=== PATIENT | male | born 1965 | race Caucasian/White ===

== ENCOUNTER 2019-12-04 18:27 | Emergency (ER) | payer SELFPAY ==
[~2019-12-04] VITALS: Ht 177.8 cm; Wt 81.8 kg
[2019-12-04 18:48] LABS: BASOPHILS # (AUTO) 0.1 10^3/uL (0.0-0.1); BASOPHILS % (AUTO) 1 % (0-10); EOSINOPHILS # (AUTO) 0.1 10^3/uL (0.0-0.3); EOSINOPHILS % (AUTO) 1 % (0-10); HEMATOCRIT 47 % (40-54); HEMOGLOBIN 16.6 G/DL (13.3-17.7); LYMPHOCYTES # (AUTO) 4.5 X 10^3 (1.0-4.0); LYMPHOCYTES % (AUTO) 38 % (12-44); MEAN CORPUSCULAR HEMOGLOBIN 32 PG (25-34); MEAN CORPUSCULAR HGB CONC 36 G/DL (32-36); MEAN CORPUSCULAR VOLUME 91 FL (80-99); MEAN PLATELET VOLUME 9.6 FL (7.4-10.4); MONOCYTES # (AUTO) 0.7 X 10^3 (0.0-1.0); MONOCYTES % (AUTO) 6 % (0-12); NEUTROPHILS # (AUTO) 6.5 X 10^3 (1.8-7.8); NEUTROPHILS % (AUTO) 54 % (42-75); PLATELET COUNT 248 10^3/uL (130-400); RED CELL DISTRIBUTION WIDTH 13.3 % (10.0-14.5)
[2019-12-04 18:57] LABS: INR 0.9 (0.8-1.4); PROTHROMBIN TIME PATIENT 12.9 SEC (12.2-14.7)
--- NOTE | 2019-12-04 18:58 | ED Neurological Problem ---
General Chief Complaint: Neuro-Stroke Like Symptoms Stated Complaint: STROKE LIKE SYMPTOMS Source: patient History of Present Illness Date Seen by Provider: Dec 04, 2019 Time Seen by Provider: 18:28 Initial Comments 54-year-old male presenting with complaints of left arm numbness and weakness that has been present off and on for the last week. He felt that symptoms were worse today as he was dropping things and his noticed. She also felt that his face was drooping at the time. He felt like he was having difficulty moving his left leg. He said he had some chest pain while this was going on. He reports that this is been off and on at least all of this week since he got overheated. He does not follow with primary doctor regularly. He does not take any medicines every day. He is a smoker. He has a family history of cardiac disease. He did take 2 baby aspirin as well as one of his 's lisinopril around 5 PM when his symptoms were happening tonight. He reports that his symptoms are improved after arrival here in the ED. He denies any difficulty with swallowing or speaking. Allergies and Home Medications Allergies Coded Allergies: No Known Drug Allergies (Unverified , 12/04/19) Patient Home Medication List Home Medication List Reviewed: Yes Review of Systems Review of Systems Constitutional: No chills, No dizziness, No fever Eyes: Blurred Vision (earlier when his symptoms were worse); Denies Pain, Denies Photophobia Ears, Nose, Mouth, Throat: no symptoms reported Respiratory: short of breath; No stridor, No wheezing Cardiovascular: chest pain (pressure in his chest); No edema, No palpitations, No syncope Gastrointestinal: No abdominal pain, No diarrhea; nausea; No vomiting Genitourinary: No dysuria Musculoskeletal: No muscle pain; muscle weakness (felt to have weakness in his left arm and leg as well as numbness in his arm. He was told by his that his face was drooping on the left side.) Skin: No rash Psychiatric/Neurological: Denies Headache; Numbness (left arm intermittently for the last week worse today), Weakness (left arm and leg intermittently for at least the last week. He noticed that he was dropping things with his left hand and moving his leg was difficult on the left side. This has improved since onset ran 5 PM) Endocrine: Excessive Sweating (felt that he got overheated this last week and that's when he thinks his symptoms started) Hematologic/Lymphatic: Denies Blood Clots, Denies Easy Bleeding, Denies Easy Bruising All Other Systems Reviewed Negative Unless Noted: Yes (Negative excepted noted.) Past Ofedzkx-Fjksys-Mtrivq Hx Past Med/Social Hx: Reviewed Nursing Past Med/Soc Hx Patient Social History Alcohol Use: Denies Use Recreational Drug Use: Yes Drug of Choice: MARIJUANA Smoking Status: Current Everyday Smoker Type Used: Cigarettes 2nd Hand Smoke Exposure: No Recent Foreign Travel: No Contact w/Someone Who Travel: No Recent Hopitalizations: No Physical Abuse: No Sexual Abuse: No Mistreated: No Fear: No Seasonal Allergies Seasonal Allergies: No Past Medical History Surgeries: Yes (LEFT FINGER REPAIR) Orthopedic Respiratory: No Cardiac: No Hypertension Neurological: No Genitourinary: No Gastrointestinal: No Musculoskeletal: No Endocrine: No HEENT: No Cancer: No Psychosocial: No Blood Disorders: Yes (HEP C) Physical Exam Vital Signs Vital Signs - First Documented 12/04/19 18:29 Temp 36.3 Pulse 98 Resp 16 B/P (MAP) 157/113 (128) Pulse Ox 94 O2 Delivery Room Air Capillary Refill : Height, Weight, BMI Height: '" Weight: lbs. oz. kg; BMI Method: General Appearance: WD/WN, no apparent distress HEENT: PERRL/EOMI, normal ENT inspection, pharynx normal Neck: non-tender, full range of motion, supple, normal inspection Respiratory: chest non-tender, lungs clear, normal breath sounds, no respiratory distress, no accessory muscle use Cardiovascular: normal peripheral pulses, regular rate, rhythm, no murmur Gastrointestinal: normal bowel sounds, non tender, soft, no pulsatile mass Back: normal inspection, no CVA tenderness Extremities: normal range of motion, non-tender, normal inspection, no pedal edema, no calf tenderness, normal capillary refill Neurologic/Psychiatric: ribbon blocker II-XII nml as tested, alert, normal mood/affect, oriented x 3; No facial droop, No motor weakness; sensory deficit (decreased sensation to light touch of the left arm); No disoriented x 3 Crainal Nerves: normal hearing, normal speech, PERRL Motor/Sensory: no motor deficit, sensory deficit (decreased sensation to light touch in the left arm) Skin: normal color, warm/dry Stroke Onset of Symptoms Date of Onset of Symptoms: Dec 04, 2019 Time of Symptom Onset: 17:00 Onset of Symptoms: Yes NIH Stroke Scale Assessment Select: Initial Level of Consciousness: 0=Alert (0), Level of Consciousness- Questions: 0=Answers both month/age (0), LOC Commands: 0=Performs both tasks (0), Gaze: Normal (0), Visual Huizar: 0=No visual loss (0), Facial Movement (Facial Paresis): 0=Normal symmetrical mnt (0), Motor Function-Arms Right: 0=No drift (0), Motor Function-Arms Left: 0=No drift (0), Motor Function-Legs Right: 0=No drift (0), Motor Function-Legs Left: 0=No drift (0), Limb Ataxia: 0=Absent (0), Sensory: 1=Mild to Moderate loss (1), Best Language: 0=No aphasia (0), Dysarthria: 0=Normal (0), Extinction & Inattention: 0=No abnormality (0), Total: 1 Stroke Thrombolytic Exclusion Age 18 or Over: Yes Acute intenal hemorrhage: No History of CVA: No Uncontrolled Coagulation Defec: No Intracranial Hemorrhage: No Severe Hypertension: No GI or Bleed: No Subarachnoid Hemorrhage: No Intracranial Neoplasm/Aneurysm: No Oral Anticoagulants: No Surgery or Trauma: No Puncture of Non-Compressible V: No Recent CPR: No Diabetic Hemorrhagic Retinopat: No Organ Biopsy: No Recent Obstetric Delivery: No Glucose: No Significant Hepatic Dysfunctio: No NIH Stoke Scale >22: No Bacterial Endocarditis: No Pericarditis: No Improving Symptoms: Yes Platelets: No TPA Contraindication: Yes (intermittent symptoms for over a week) Progress/Results/Core Measures Results/Orders Lab Results Laboratory Tests Test 12/04/19 18:35 Range/Units White Blood Count 12.0 H 4.3-11.0 10^3/uL Red Blood Count 5.15 4.35-5.85 10^6/uL Hemoglobin 16.6 13.3-17.7 G/DL Hematocrit 47 40-54 % Mean Corpuscular Volume 91 80-99 FL Mean Corpuscular Hemoglobin 32 25-34 PG Mean Corpuscular Hemoglobin Concent 36 32-36 G/DL Red Cell Distribution Width 13.3 10.0-14.5 % Platelet Count 248 130-400 10^3/uL Mean Platelet Volume 9.6 7.4-10.4 FL Neutrophils (%) (Auto) 54 42-75 % Lymphocytes (%) (Auto) 38 12-44 % Monocytes (%) (Auto) 6 0-12 % Eosinophils (%) (Auto) 1 0-10 % Basophils (%) (Auto) 1 0-10 % Neutrophils # (Auto) 6.5 1.8-7.8 X 10^3 Lymphocytes # (Auto) 4.5 H 1.0-4.0 X 10^3 Monocytes # (Auto) 0.7 0.0-1.0 X 10^3 Eosinophils # (Auto) 0.1 0.0-0.3 10^3/uL Basophils # (Auto) 0.1 0.0-0.1 10^3/uL Prothrombin Time 12.9 12.2-14.7 SEC INR Comment 0.9 0.8-1.4 Activated Partial Thromboplast Time 26 24-35 SEC Sodium Level 140 135-145 MMOL/L Potassium Level 4.2 3.6-5.0 MMOL/L Chloride Level 99 98-107 MMOL/L Carbon Dioxide Level 25 21-32 MMOL/L Anion Gap 16 H 5-14 MMOL/L Blood Urea Nitrogen 25 H 7-18 MG/DL Creatinine 1.41 H 0.60-1.30 MG/DL Estimat Glomerular Filtration Rate 52 BUN/Creatinine Ratio 18 Glucose Level 137 H 70-105 MG/DL Calcium Level 9.8 8.5-10.1 MG/DL Corrected Calcium 9.5 8.5-10.1 MG/DL Total Bilirubin 0.3 0.1-1.0 MG/DL Aspartate Amino Transf (AST/SGOT) 30 5-34 U/L Alanine Aminotransferase (ALT/SGPT) 23 0-55 U/L Alkaline Phosphatase 85 40-136 U/L Troponin I < 0.30 <0.30 NG/ML Total Protein 7.6 6.4-8.2 GM/DL Albumin 4.4 3.2-4.5 GM/DL Serum Alcohol < 10 <10 MG/DL My Orders Orders - HERNANDEZ GRANT MD Cbc With Automated Diff (12/04/19 18:38) Protime With Inr (12/04/19 18:38) Partial Thromboplastin Time (12/04/19 18:38) Comprehensive Metabolic Panel (12/04/19 18:38) Troponin I Fs (12/04/19 18:38) Chest 1 View Ap/Pa Only (12/04/19 18:38) Ekg Tracing (12/04/19 18:38) Accucheck Stat ONCE (12/04/19 18:38) Ed Iv/Invasive Line Start (12/04/19 18:38) Vital Signs Stroke Patient Q15M (12/04/19 18:38) Ct Head Wo-R/O Stroke (12/04/19 18:38) O2 (12/04/19 18:38) Intake & Output 06,14,22 (12/04/19 18:38) Monitor-Rhythm Ecg Trace Only (12/04/19 18:38) Dysphagia Screening Tool (12/04/19 18:38) Alcohol (12/04/19 18:38) Vital Signs/I&O 12/04/19 12/04/19 18:29 20:26 Temp 36.3 Pulse 98 87 Resp 16 18 B/P (MAP) 157/113 (128) 131/88 Pulse Ox 94 97 O2 Delivery Room Air Room Air Progress Progress Note #1: Progress Note Stroke activation and obtained a CT scan of the head as well as blood work and chest x-ray with EKG. Progress Note #2: Time: 19:12 Progress Note Radiologist called with report that pt had subacute to acute ischemic changes in right frontal lobe. Pt updated and he was ok with going to [place] or [facility]. [address] Del Rio with neurology from [facility] stroke transfer center and she accepted the patient for transfer to [facility] for risk stratification and symptomatic treatment. He was not a TPA candidate since his symptoms have been staggered x 5-7 days and have rapidly improved this evening as well as already seen ischemic changes on his CT scan After making arrangements for transfer to [facility] the patient's stated she wanted to have him go to [facility] in [facility]. [address] Young with neurology about the patient. He was agreeable to the patient coming to [place]. [address] Armenta with the hospitalist service accepted the patient for transfer. We will send a Face sheet with information on the patient to [place] and they will sign a bed and called back with the bed assignment. His labs appear stable although he does have mild renal insufficiency with a creatinine 1.4. He has negative troponin and CBC and coags are normal. Progress Note #3: Time: 20:16 Progress Note After patient was accepted to [place] he spoke with his and they decided that he was leaving AGAINST MEDICAL ADVICE and she will drive him down rather than take an ambulance. He stated that he understood the risk of or worsening symptoms and was still against medical transport. He voiced concern about cost. Advised that there were programs to help with cost but he still refused medical transport and decided to leave AGAINST MEDICAL ADVICE. Stressed importance of follow-up with [place] or going to hospital with neurology for further evaluation and treatment. Initial ECG Impression Date: Dec 04, 2019 Initial ECG Impression Time: 19:17 Initial ECG Rate: 84 Initial ECG Rhythm: Normal Sinus Initial ECG Comparisson: No Previous ECG Available Comment Sinus rhythm with rate of [address] interval of [address] elevation. QT interval of 354 ms and QTc interval of 419 ms. No prior tracing available for comparison. Diagnostic Imaging Diagonstic Imaging: Xray Plain Films/CT/US/NM/MRI: chest Comments [facility] [place], [place] NAME: VANDANA ROWLEY [facility] REC#: [id number] PT STATUS: REG ER : 1965 PHYSICIAN: HERNANDEZ GRANT MD ADMIT DATE: 12/04/19/ER FS Draft Date of Exam:12/04/19 CHEST 1 VIEW AP/PA ONLY INDICATION: Left-sided arm numbness for 2 weeks Frontal views of the chest shows normal heart size and vascularity. The lungs are clear. There is no effusion or pneumothorax. There is no bony abnormality. IMPRESSION: No acute abnormality is seen. Dictated on workstation # [id number] Dict: 12/04/191901 Trans: 12/04/191907 [facility] [id number] Interpreted by: CLARY GIRON MD Electronically signed by: Diagonstic Imaging: CT Plain Films/CT/US/NM/MRI: head Comments [facility] [place], [place] NAME: VANDANA ROWLEY [facility] REC#: [id number] PT STATUS: REG ER : 1965 PHYSICIAN: HERNANDEZ GRANT MD ADMIT DATE: 12/04/19/ER FS Signed Date of Exam:12/04/19 CT HEAD WO-R/O STROKE PROCEDURE: CT head wo r/o stroke. TECHNIQUE: Multiple contiguous axial images were obtained through the brain without the use of intravenous contrast. Auto Exposure Controls were utilized during the CT exam to meet ALARA standards for radiation dose reduction. INDICATION: Intermittent left-sided arm numbness x2 weeks with most recent onset one hour ago. CORRELATION STUDY: None. FINDINGS: There is regional area of decreased attenuation in the most posterior aspect of the right frontal lobe and anterior parietal lobe at its vertex. The remainder of the brain parenchyma appears otherwise unremarkable. Ventricles and sulci appearing unremarkable. No midline shift or mass effect. No intracranial hemorrhage. Prominent intracranial vascular calcification is noted. No hyperdense MCA sign. Bony calvarium is intact. Paranasal sinuses and mastoid air cells are clear. IMPRESSION: 1. Regional area of decreased attenuation in the high right frontoparietal region. Particularly given symptoms, does raise concern for perhaps subacute area of infarct. Correlation with MRI would be recommended. Telephone call has been made to the [facility] at the time of dictation, 07:03 PM. Dictated by: Dictated on workstation # [id number] Dict: 12/04/191899 Trans: 12/04/191946 [id number] Interpreted by: KOSTAS CLEANING DO Electronically signed by: KOSTAS CLEANING DO 12/04/191946 Reviewed: Discussed w/Radiologist Departure Impression Primary Impression: Left against medical advice Additional Impression: Acute ischemic stroke Disposition: AGAINST MEDICAL ADVICE Condition: Against Medical Advice Transfer Transfer Reason: Patient preference Time Spoke to Accepting Phy: 19:38 Transfer Progress Notes [address] Young and Dr. Armenta and pt accepted for transfer to [facility]. They will call back with a room assignment after they get the Face Sheet and get him in the computer. Transfer Facility: [facility] Method of Transfer: EMS Departure-Patient Inst. Decision time for Depature: 20:16 Referrals: AURA WOOD DO (PCP/Family) Primary Care Physician Patient Instructions: Leaving Against Medical Advice, Stroke (DC) Add. Discharge Instructions: Follow up with Neurology and hospital as soon as possible. All discharge instructions reviewed with patient and/or family. Voiced understanding. HERNANDEZ GRANT MD Dec 04, 2019 18:58
--- NOTE | 2019-12-04 19:08 | Diagnostic Imaging Report ---
INDICATION: Left-sided arm numbness for 2 weeks Frontal views of the chest shows normal heart size and vascularity. The lungs are clear. There is no effusion or pneumothorax. There is no bony abnormality. IMPRESSION: No acute abnormality is seen. Dictated by: Dictated on workstation # [id number]
[2019-12-04 19:12] LABS: ALANINE AMINOTRANSFERASE 23 U/L (0-55); ALBUMIN 4.4 GM/DL (3.2-4.5); ALKALINE PHOSPHATASE 85 U/L (40-136); BILIRUBIN,TOTAL 0.3 MG/DL (0.1-1.0); BUN/CREATININE RATIO 18; CALCIUM 9.8 MG/DL (8.5-10.1); CARBON DIOXIDE 25 MMOL/L (21-32); CHLORIDE 99 MMOL/L (98-107); CREATININE SERUM 1.41 MG/DL (0.60-1.30); GFR ESTIMATED 52; GLUCOSE 137 MG/DL (70-105); POTASSIUM 4.2 MMOL/L (3.6-5.0); SODIUM 140 MMOL/L (135-145); TOTAL PROTEIN 7.6 GM/DL (6.4-8.2)
--- NOTE | 2019-12-04 19:37 | Diagnostic Imaging Report ---
PROCEDURE: CT head wo r/o stroke. TECHNIQUE: Multiple contiguous axial images were obtained through the brain without the use of intravenous contrast. Auto Exposure Controls were utilized during the CT exam to meet ALARA standards for radiation dose reduction. INDICATION: Intermittent left-sided arm numbness x2 weeks with most recent onset one hour ago. CORRELATION STUDY: None. FINDINGS: There is regional area of decreased attenuation in the most posterior aspect of the right frontal lobe and anterior parietal lobe at its vertex. The remainder of the brain parenchyma appears otherwise unremarkable. Ventricles and sulci appearing unremarkable. No midline shift or mass effect. No intracranial hemorrhage. Prominent intracranial vascular calcification is noted. No hyperdense MCA sign. Bony calvarium is intact. Paranasal sinuses and mastoid air cells are clear. IMPRESSION: 1. Regional area of decreased attenuation in the high right frontoparietal region. Particularly given symptoms, does raise concern for perhaps subacute area of infarct. Correlation with MRI would be recommended. Telephone call has been made to the [place] [facility] at the time of dictation, 07:03 PM. Dictated by: Dictated on workstation # [id number]
--- NOTE | 2019-12-04 20:15 | NUR ---
PT REQUESTED TO SPEAK WITH HIS PRIOR TO BEING TRANSFERRED VIA EMS TO [facility]. PT NOW STATES THAT HE WANTS HIS TO TRANSPORT HIM POV TO [facility]. THIS RN AND THE PROVIDER EXPLAINED THE RISKS INVOLVED IN NOT BEING TRANSPORTED VIA EMS AND THE PT STATES HE UNDERSTANDS THE RISKS.
[2019-12-04 20:26] VITALS: BP 131/88
--- OUTSIDE RECORDS SUMMARY | 2019-12-04 22:36 | XMS REPORT | Continuity of Care Document ---
Demographics Preferred Language Unknown Marital Status Unknown Mandaeism Affiliation Unknown Race Unknown Ethnic Group Unknown Author Organization Unknown Address Unknown Phone Unavailable Allergies There is no data. Medications There is no data. Problems There is no data. Procedures There is no data. Results Test Result Range Complete blood count (CBC) with automate d white blood cell (WBC) differential - 12/04/19 18:35 Blood leukocytes automated count (number/volume) 12.0 10*3/uL 4.3-11.0 Blood erythrocytes automated count (number/volume) 5.15 10*6/uL 4.35-5.85 Venous blood hemoglobin measurement (mass/volume) 16.6 g/dL 13.3-17.7 Blood hematocrit (volume fraction) 47 % 40-54 Automated erythrocyte mean corpuscular volume 91 [ foz_us] 80-99 Automated erythrocyte mean corpuscular h emoglobin (mass per erythrocyte) 32 pg 25-34 Automated erythrocyte mean corpuscular h emoglobin concentration measurement (mass/volume) 36 g/dL 32-36 Automated erythrocyte distribution width ratio 13. 3 % 10.0- 14.5 Automated blood platelet count (count/volume) 248 10*3/uL 130-400 Automated blood platelet mean volume measurement 9.6 [foz_us] 7.4-10.4 Automated blood neutrophils/100 leukocytes 54 % 42-75 Automated blood lymphocytes/100 leukocytes 38 % 12-44 Blood monocytes/100 leukocytes 6 % 0-12 Automated blood eosinophils/100 leukocytes 1 % 0-10 Automated blood basophils/100 leukocytes 1 % 0-10 Blood neutrophils automated count (number/volume) 6.5 10*3 1.8-7.8 Blood lymphocytes automated count (number/volume) 4.5 10*3 1.0-4.0 Blood monocytes automated count (number/volume) 0. 7 10*3 0.0-1.0 Automated eosinophil count 0.1 10*3/uL 0 .0-0.3 Automated blood basophil count (count/volume) 0.1 10*3/uL 0.0-0.1 PT panel in platelet poor plasma by coag ulation assay - 12/04/19 18:35 Prothrombin time (PT) in platelet poor plasma by coagu lation assay 12.9 s 12.2-14.7 INR in platelet poor plasma or blood by coagulation as say 0.9 0.8-1.4 Activated partial thromboplastin time (a PTT) in platelet poor plasma bycoagulation assay - 12/04/19 18:35 Activated partial thromboplastin time (a PTT) in platelet poor plasma bycoagulation assay 26 s 24-35 Serum or plasma ethanol measurement (mas s/volume) - 12/04/19 18:35 Serum or plasma ethanol measurement (mass/volume) < mg/dL <10 Comprehensive metabolic panel - 12/04/19 18:35 Serum or plasma sodium measurement (moles/volume) 140 mmol/L 135-145 Serum or plasma potassium measurement (moles/volume) 4.2 mmol/L 3.6-5.0 Serum or plasma chloride measurement (moles/volume) 99 mmol/L 98-107 Carbon dioxide 25 mmol/L 21-32 Serum or plasma anion gap determination (moles/volume) 16 mmol/L 5-14 Serum or plasma urea nitrogen measurement (mass/volume ) 25 mg/dL 7-18 Serum or plasma creatinine measurement (mass/volume) 1.41 mg/dL 0.60-1.30 Serum or plasma urea nitrogen/creatinine mass ratio 18 NRG Serum or plasma creatinine measurement w ith calculation of estimated glomerular filtration rate 52 NRG Serum or plasma glucose measurement (mass/volume) 137 mg/dL 70-105 Serum or plasma calcium measurement (mass/volume) 9.8 mg/dL 8.5-10.1 Serum or plasma total bilirubin measurement (mass/volu me) 0.3 mg/dL 0.1-1.0 Serum or plasma alkaline phosphatase elisha surement (enzymatic activity/volume) 85 U/L 40-136 Serum or plasma aspartate aminotransfera se measurement (enzymatic activity/volume) 30 U/L 5-34 Serum or plasma alanine aminotransferase measurement (enzymatic activity/volume) 23 U/L 0-55 Serum or plasma protein measurement (mass/volume) 7.6 g/dL 6.4-8.2 Serum or plasma albumin measurement (mass/volume) 4.4 g/dL 3.2-4.5 CALCIUM CORRECTED 9.5 mg/dL 8.5-10.1 TROPONIN I FS - 12/04/19 18:35 TROPONIN I FS < 0.30 <0.30 Encounters ACCT No. Visit Date/Time Discharge Status Pt. Type Provider Facility Loc./Unit Complaint [id number] 12/04/2019 18:49:00 Document Registration
== END 2019-12-04 20:22 | disposition left against medical advice (07) ==
LOC: ER FS 18:29
DX: I63.9 Cerebral infarction, unspecified (principal); I10 Essential (primary) hypertension; F17.210 Nicotine dependence, cigarettes, uncomplicated
CPT/HCPCS: 36415; 70450; 71045; 80053; 80320; 84484; 85025; 85610; 85730; 93041

== ENCOUNTER 2021-11-09 12:20 | Emergency (ER) | payer BC ==
[~2021-11-09] VITALS: Ht 177 cm; Wt 85.0 kg
[2021-11-09 12:34] LABS: BILIRUBIN,URINE NEGATIVE (NEGATIVE); CLARITY,URINE CLEAR; COLOR,URINE YELLOW; GLUCOSE, URINE (UA) NEGATIVE (NEGATIVE); KETONES,URINE NEGATIVE (NEGATIVE); LEUKOCYTE ESTERASE ,URINE NEGATIVE (NEGATIVE); NITRITE,URINE NEGATIVE (NEGATIVE); PROTEIN,URINE 1+ (NEGATIVE)
[2021-11-09] MEDS ORDERED: fentaNYL INJ 100 MCG/2 ML AMP IVP ONE (12:45)
[2021-11-09 12:47] LABS: BACTERIA,URINE NEGATIVE /HPF; RBC,URINE 50-100 /HPF
[2021-11-09] MEDS ORDERED: ONDANSETRON 4 MG/2 ML (SDV) Z0FRAN IVP ONE (13:00)
[2021-11-09 13:02] LABS: BASOPHILS # (AUTO) 0.1 10^3/uL (0.0-0.1); BASOPHILS % (AUTO) 1 % (0-10); EOSINOPHILS # (AUTO) 0.2 10^3/uL (0.0-0.3); EOSINOPHILS % (AUTO) 2 % (0-10); HEMATOCRIT 47 % (40-54); HEMOGLOBIN 16.2 g/dL (13.3-17.7); LYMPHOCYTES % (AUTO) 38 % (12-44); MEAN CORPUSCULAR HEMOGLOBIN 32 pg (25-34); MEAN CORPUSCULAR HGB CONC 34 g/dL (32-36); MEAN CORPUSCULAR VOLUME 92 fL (80-99); MEAN PLATELET VOLUME 9.8 fL (9.0-12.2); MONOCYTES # (AUTO) 0.7 10^3/uL (0.0-1.0); MONOCYTES % (AUTO) 7 % (0-12); NEUTROPHILS # (AUTO) 5.5 10^3/uL (1.8-7.8); NEUTROPHILS % (AUTO) 52 % (42-75); PLATELET COUNT 250 10^3/uL (130-400); WHITE BLOOD COUNT 10.6 10^3/uL (4.3-11.0)
[2021-11-09 13:07] LABS: INR 1.1 (0.8-1.4); PROTHROMBIN TIME PATIENT 14.4 SEC (12.2-14.7)
--- NOTE | 2021-11-09 13:13 | Diagnostic Imaging Report ---
INDICATION: Prior history of stroke, sudden onset severe headache. TECHNIQUE: Multiple contiguous axial images were obtained through the brain without the use of intravenous contrast. Auto Exposure Controls were utilized during the CT exam to meet ALARA standards for radiation dose reduction. Comparison made with prior study from 12/04/2019. FINDINGS: There are no extra-axial fluid collections. No intracranial hemorrhage. No intracranial mass or mass effect. No midline shift. The ventricles are normal in size and position. There is an old infarct in the right parietal region, which appears similar to the previous study. There is no definite new abnormality. Calvarial windows are normal. IMPRESSION: Old right parietal infarct. No acute hemorrhage or mass effect or acute appearing finding. Dictated by: Dictated on workstation # [id number]
--- NOTE | 2021-11-09 13:18 | ED General ---
General Chief Complaint: - Reproductive Stated Complaint: HEADACHE; URINARY PAIN Nursing Triage Note: Patient has presented to ER with cc of urinary pain, frequency, right sided flank pain that started about 1130 this morning. He reports that it feels like past kidney stone pain. He adds that he since his flank pain started he has developed a headache. He did take tramodol for his pain with little relief. Source of Information: Patient Exam Limitations: No Limitations History of Present Illness Date Seen by Provider: November 09, 2021 Time Seen by Provider: 12:24 Initial Comments This 56-year-old gentleman presents to the emergency room with 2 complaints. First he has a right flank pain radiating down into the right groin reminiscent of previous ureteral stones. The pain started suddenly this morning. He had some brief associated nausea. He also has pain with urination and feeling of urinary urgency. His second complaint is severe headache that came on suddenly as he was walking into the ER. He is severely hypertensive on initial blood pressure measurement. Initial blood pressure was 230/121. He exhibits no neurologic deficits. Allergies and Home Medications Allergies Coded Allergies: No Known Drug Allergies (Unverified , 12/04/19) Patient Home Medication List Home Medication List Reviewed: Yes Hydrocodone/Acetaminophen (Hydrocodone-Acetamin 5-325 mg) 5 Mg-325 Mg Tablet, 1 TAB PO Q4H PRN for PAIN-MODERATE (5-7) Prescribed by: SABRINA ALCARAZ on 11/09/21 1343 Ondansetron (Ondansetron Odt) 4 Mg Tab.rapdis, 4 MG SL Q4H PRN for NAUSEA/VOMITING Prescribed by: SABRINA ALCARAZ on 11/09/21 1342 Tamsulosin HCl (Flomax) 0.4 Mg Cap, 0.4 MG PO DAILY Prescribed by: SABRINA ALCARAZ on 11/09/21 1342 Review of Systems Review of Systems Constitutional: no symptoms reported EENTM: no symptoms reported Respiratory: no symptoms reported Cardiovascular: no symptoms reported Gastrointestinal: see HPI Genitourinary: see HPI Musculoskeletal: no symptoms reported Skin: no symptoms reported Psychiatric/Neurological: See HPI Hematologic/Lymphatic: No Symptoms Reported Immunological/Allergic: no symptoms reported Past Xyaknyy-Rsxkiq-Yrbwie Hx Patient Social History Tobacco Use?: Yes Tobacco type used: Cigarettes Smoking Status: Current Everyday Smoker Use of E-Cig and/or Vaping dev: No Substance use?: Yes Substance type: Marijuana Substance frequency: Daily Alcohol Use?: Yes Alcohol Frequency: Once in a while Seasonal Allergies Seasonal Allergies: No Past Medical History Surgeries: Yes (LEFT FINGER REPAIR) Orthopedic Respiratory: No Cardiac: Yes Hypertension Neurological: No Genitourinary: Yes Kidney Stones Gastrointestinal: No Musculoskeletal: No Endocrine: No HEENT: No Cancer: No Psychosocial: No Blood Disorders: Yes (HEP C) Physical Exam Vital Signs Vital Signs - First Documented 11/09/21 12:37 Temp 35.0 Pulse 65 Resp 18 B/P (MAP) 230/121 (157) Pulse Ox 95 O2 Delivery Room Air Capillary Refill : Height, Weight, BMI Height: '" Weight: lbs. oz. kg; 27.00 BMI Method: General Appearance: WD/WN, Mild Distress HEENT: PERRL/EOMI, Normal ENT Inspection, Pharynx Normal Neck: Normal Inspection Respiratory: Lungs Clear, Normal Breath Sounds, No Accessory Muscle Use Cardiovascular: Regular Rate, Rhythm, No Edema, No Murmur Gastrointestinal: Normal Bowel Sounds, Soft, Tenderness (Right flank down through right lower quadrant) Extremity: Normal Inspection, No Pedal Edema Neurologic/Psychiatric: Alert, Oriented x3, No Motor/Sensory Deficits, Normal Mood/Affect, dobie man II-XII Norm as Tested Skin: Normal Color, Warm/Dry Progress/Results/Core Measures Suspected Sepsis SIRS Temperature: Pulse: 65 Respiratory Rate: 18 Laboratory Tests 11/09/21 12:29: White Blood Count 10.6 Blood Pressure 230 /121 Mean: 157 Laboratory Tests 11/09/21 12:29: Creatinine 1.03, INR Comment 1.1, Platelet Count 250, Total Bilirubin 0.4 Results/Orders Lab Results Laboratory Tests Test 11/09/21 12:25 11/09/21 12:29 Range/Units Urine Color YELLOW Urine Clarity CLEAR Urine pH 7.0 5-9 Urine Specific [place] 1.020 1.016-1.022 Urine Protein 1+ H NEGATIVE Urine Glucose (UA) NEGATIVE NEGATIVE Urine Ketones NEGATIVE NEGATIVE Urine Nitrite NEGATIVE NEGATIVE Urine Bilirubin NEGATIVE NEGATIVE Urine Urobilinogen 0.2 < = 1.0 MG/DL Urine Leukocyte Esterase NEGATIVE NEGATIVE Urine RBC (Auto) 3+ H NEGATIVE Urine RBC 50-100 H /HPF Urine WBC NONE /HPF Urine Squamous Epithelial Cells NONE /HPF Urine Crystals NONE /LPF Urine Bacteria NEGATIVE /HPF Urine Casts NONE /LPF Urine Mucus NEGATIVE /LPF Urine Culture Indicated NO White Blood Count 10.6 4.3-11.0 10^3/uL Red Blood Count 5.10 4.30-5.52 10^6/uL Hemoglobin 16.2 13.3-17.7 g/dL Hematocrit 47 40-54 % Mean Corpuscular Volume 92 80-99 fL Mean Corpuscular Hemoglobin 32 25-34 pg Mean Corpuscular Hemoglobin Concent 34 32-36 g/dL Red Cell Distribution Width 13.6 10.0-14.5 % Platelet Count 250 130-400 10^3/uL Mean Platelet Volume 9.8 9.0-12.2 fL Immature Granulocyte % (Auto) 0 % Neutrophils (%) (Auto) 52 42-75 % Lymphocytes (%) (Auto) 38 12-44 % Monocytes (%) (Auto) 7 0-12 % Eosinophils (%) (Auto) 2 0-10 % Basophils (%) (Auto) 1 0-10 % Neutrophils # (Auto) 5.5 1.8-7.8 10^3/uL Lymphocytes # (Auto) 4.0 1.0-4.0 10^3/uL Monocytes # (Auto) 0.7 0.0-1.0 10^3/uL Eosinophils # (Auto) 0.2 0.0-0.3 10^3/uL Basophils # (Auto) 0.1 0.0-0.1 10^3/uL Immature Granulocyte # (Auto) 0.0 0.0-0.1 10^3/uL Prothrombin Time 14.4 12.2-14.7 SEC INR Comment 1.1 0.8-1.4 Activated Partial Thromboplast Time 27 24-35 SEC Sodium Level 137 135-145 MMOL/L Potassium Level 4.0 3.6-5.0 MMOL/L Chloride Level 100 98-107 MMOL/L Carbon Dioxide Level 22 21-32 MMOL/L Anion Gap 15 H 5-14 MMOL/L Blood Urea Nitrogen 19 H 7-18 MG/DL Creatinine 1.03 0.60-1.30 MG/DL Estimat Glomerular Filtration Rate 85 BUN/Creatinine Ratio 18 Glucose Level 112 H 70-105 MG/DL Calcium Level 9.3 8.5-10.1 MG/DL Corrected Calcium 9.0 8.5-10.1 MG/DL Total Bilirubin 0.4 0.1-1.0 MG/DL Aspartate Amino Transf (AST/SGOT) 27 5-34 U/L Alanine Aminotransferase (ALT/SGPT) 18 0-55 U/L Alkaline Phosphatase 79 40-136 U/L Total Protein 7.6 6.4-8.2 GM/DL Albumin 4.4 3.2-4.5 GM/DL My Orders Orders - SABRINA CARDONA MD Ua Culture If Indicated (11/09/21 12:24) Fentanyl Inj (Sublimaze Injection) (11/09/21 12:45) Ct Abdomen/Pelvis Wo (11/09/21 12:45) Ct Head Wo-R/O Stroke (11/09/21 12:45) Cbc With Automated Diff (11/09/21 12:54) Comprehensive Metabolic Panel (11/09/21 12:54) Protime With Inr (11/09/21 12:54) Partial Thromboplastin Time (11/09/21 12:54) Ed Iv/Invasive Line Start (11/09/21 12:54) Ondansetron Injection (Zofran Injectio (11/09/21 13:00) Ketorolac Injection (Toradol Injection) (11/09/21 13:30) Medications Given in ED Current Medications Medications Dose Ordered Sig/Sanket Route Start Time Stop Time Status Last Admin Dose Admin Fentanyl Citrate 75 mcg ONCE ONCE IVP 11/09/21 12:45 11/09/21 12:46 DC 11/09/21 12:52 75 MCG Ketorolac Tromethamine 15 mg ONCE ONCE IVP 11/09/21 13:30 11/09/21 13:31 DC 11/09/21 13:39 15 MG Vital Signs/I&O 11/09/21 11/09/21 12:37 13:41 Temp 35.0 Pulse 65 66 Resp 18 16 B/P (MAP) 230/121 (157) 164/100 Pulse Ox 95 98 O2 Delivery Room Air Room Air Capillary Refill : Blood Pressure Mean: 157 Progress Note #1: Time: 13:17 Progress Note Patient received fentanyl 75 mcg IV for pain control. Pain improved significantly and blood pressure dropped to 174/97. CT of the head and CT abdomen and pelvis for stone search were obtained. Interpretation is pending. Progress Note #2: Progress Note CT of the head demonstrated old stroke but no acute abnormalities. CT abdomen and pelvis showed a distal ureteral stone at the right UVJ. Patient was further treated with Toradol. Prescriptions were provided along with a strainer. Patient has an appointment with his primary care provider at 1400. He will discuss management of his blood pressure at that time. He did have a notable improvement in his blood pressure while in the ER. I have suggested that he increase his dosing from lisinopril 20 mg a day to lisinopril 30 mg a day. Headache and abdominal pain were significantly improved while in the ER. He did not require antiemetics. Diagnostic Imaging Diagonstic Imaging: CT Plain Films/CT/US/NM/MRI: head Comments CT head viewed by me and report reviewed. See report below: NAME: VANDANA ROWLEY [facility] REC#: [id number] PT STATUS: REG ER : 1965 PHYSICIAN: SABRINA CARDONA MD ADMIT DATE: 11/09/21/ER FS Draft Date of Exam:11/09/21 CT HEAD WO-R/O STROKE INDICATION: Prior history of stroke, sudden onset severe headache. TECHNIQUE: Multiple contiguous axial images were obtained through the brain without the use of intravenous contrast. Auto Exposure Controls were utilized during the CT exam to meet ALARA standards for radiation dose reduction. Comparison made with prior study from 12/04/2019. FINDINGS: There are no extra-axial fluid collections. No intracranial hemorrhage. No intracranial mass or mass effect. No midline shift. The ventricles are normal in size and position. There is an old infarct in the right parietal region, which appears similar to the previous study. There is no definite new abnormality. Calvarial windows are normal. IMPRESSION: Old right parietal infarct. No acute hemorrhage or mass effect or acute appearing finding. Dictated on workstation # [id number] Dict: 11/09/21 1306 Trans: 11/09/21 1312 [id number] Interpreted by: CORNELIA ERVIN MD Diagonstic Imaging: CT Plain Films/CT/US/NM/MRI: abdomen, pelvis Comments CT abdomen pelvis viewed by me and report reviewed. See report below: Departure Impression Primary Impression: Right ureteral stone Additional Impressions: Episode of hypertension Severe headache Disposition: 01 HOME, SELF-CARE Condition: Improved Departure-Patient Inst. Decision time for Depature: 13:39 Referrals: AURA WOOD DO (PCP/Family) Primary Care Physician Patient Instructions: High Blood Pressure in Adults, Kidney Stone Diet, Kidney Stone, Adult ED Add. Discharge Instructions: Drink plenty of clear liquids to help flush out the kidney stone. You may take ibuprofen up to 600 mg every 6 hours as needed for pain. Add hydrocodone for pain not controlled by ibuprofen. Use the Zofran (ondansetron) as prescribed for nausea and vomiting. Keep your appointment with your primary care provider today. Discuss potentially increasing your lisinopril dosing for better blood pressure control. Strain your urine and bring any stones collected to a follow-up appointment with your primary care provider. Call with questions or concerns. All discharge instructions reviewed with patient and/or family. Voiced understanding. Scripts Cephalexin (Cephalexin) 500 Mg Tablet 500 MG PO TID, #20 TAB Prov: SABRINA CARDONA MD 11/09/21 Ondansetron (Ondansetron Odt) 4 Mg Tab.rapdis 4 MG SL Q4H PRN for NAUSEA/VOMITING, #10 TAB Prov: SABRINA CARDONA MD 11/09/21 Hydrocodone/Acetaminophen (Hydrocodone-Acetamin 5-325 mg) 5 Mg-325 Mg Tablet 1 TAB PO Q4H PRN for PAIN-MODERATE (5-7), #10 TAB Prov: SABRINA CARDONA MD 11/09/21 Tamsulosin HCl (Flomax) 0.4 Mg Cap 0.4 MG PO DAILY, #10 CAP Prov: SABRINA CARDONA MD 11/09/21 Copy Copies To 1: AURA WOOD JOSHUA T MD November 09, 2021 13:18
[2021-11-09 13:19] LABS: ALBUMIN 4.4 GM/DL (3.2-4.5); BILIRUBIN,TOTAL 0.4 MG/DL (0.1-1.0); CALCIUM 9.3 MG/DL (8.5-10.1); CREATININE SERUM 1.03 MG/DL (0.60-1.30); TOTAL PROTEIN 7.6 GM/DL (6.4-8.2)
--- NOTE | 2021-11-09 13:21 | Diagnostic Imaging Report ---
PROCEDURE: CT abdomen and pelvis without contrast. TECHNIQUE: Multiple contiguous axial images were obtained through the abdomen and pelvis without the use of intravenous contrast. Auto Exposure Controls were utilized during the CT exam to meet ALARA standards for radiation dose reduction. INDICATION: 56-year-old male, right flank pain. Headache. CORRELATION STUDY: None. FINDINGS: LOWER THORAX: Clear with minimal basilar atelectasis. Heart size within normal limits with coronary artery calcification. LIVER: Unremarkable on unenhanced imaging. GALLBLADDER: Present and unremarkable. No bile duct dilatation. SPLEEN: Unremarkable. PANCREAS: Unremarkable. ADRENAL GLANDS: 13 mm low-density nodule left adrenal gland, suspect for adenoma but incompletely characterized. KIDNEYS: Presence of multiple non-obstructing bilateral renal stones, left greater than right. 2 mm stone at the right UVJ currently results in mild right-sided obstruction. ABDOMINAL AORTA: Diffuse wall calcification and ectasia. Maximum dimension up to 2.8 cm. GASTROINTESTINAL TRACT: No obstruction or inflammation. Normal appendix. URINARY BLADDER: Unremarkable. REPRODUCTIVE: Prostate gland appearing unremarkable. OSSEOUS STRUCTURES: Moderately advanced multilevel degenerative change. Most severe disc space narrowing and vacuum disc phenomenon at the L4-L5 level and to a lesser degree the L1-L2 level. Mild S-type curvature of the thoracolumbar spine. OTHER: None. IMPRESSION: 1. 2 mm stone right UVJ results in currently mild obstruction. 2. Multiple additional small nonobstructing renal stones, left greater than right. 3. Prominent calcification of the abdominal aorta with a maximum dimension of just under 3 cm. Dictated by: Dictated on workstation # [id number]
[2021-11-09] MEDS ORDERED: KETOROLAC 30 MG/ML VIAL IVP ONE (13:30)
[2021-11-09 13:41] VITALS: BP 164/100
[2021-11-09] MEDS ORDERED: ACHD5005 PO ×2 (13:42→15:24)
[2021-11-09] MEDS ORDERED: TMSL.4C PO ×2 (13:42→15:24)
[2021-11-09] MEDS ORDERED: ONDA4TAB11 SL ×2 (13:42→15:24)
[2021-11-09] MEDS ORDERED: CEPH500T PO ×2 (13:52→15:24)
== END 2021-11-09 13:45 | disposition home or self-care (01) ==
LOC: EDUNIT# 12:20 → ER FS 12:22
DX: N20.1 Calculus of ureter (principal); I10 Essential (primary) hypertension; F17.210 Nicotine dependence, cigarettes, uncomplicated
CPT/HCPCS: 36415; 70450; 74176; 80053; 81000; 85025; 85610; 85730; 96374; 96375

== ENCOUNTER → 2022-01-12 | Outpatient (CLI) | payer BC ==
[~2022-01-12] MED LIST: ACHD5005 PO; CEPH500T PO; ONDA4TAB11 SL; TMSL.4C PO
--- NOTE | 2022-01-12 09:38 | Diagnostic Imaging Report ---
PROCEDURE: US carotid duplex, bilateral. TECHNIQUE: Multiple real-time grayscale images were obtained over the carotid arteries in various projections, bilaterally. Additional spectral analysis and color Doppler duplex images were also obtained. INDICATION: Transient ischemic attack. Patient has had a prior right-sided endarterectomy. No definite identifiable flow in the right common or internal carotid artery is identified. There is flow in the right external carotid artery. There is flow in the left common carotid artery with velocities of 80 cm/s. No identifiable flow in the left internal carotid artery is identified. Both vertebral arteries show antegrade flow. IMPRESSION: Severe carotid disease with apparent occlusions of the internal carotid arteries. A trickle of flow cannot be entirely excluded therefore CT angiography may be useful for further evaluation. Parameters based on the consensus panel Espinal-Scale and Doppler ultrasound criteria published April 2003, Radiology, Volume 229. DOPPLER (peak systolic velocity M/S Right Left CCA OCCLUDED .80 ICA Proximal OCCLUDED OCCLUDED ICA Mid OCCLUDED OCCLUDED ICA Distal OCCLUDED OCCLUDED RATIO NA NA ECA .46 1.67 VERT .71 .84 Dictated by: Dictated on workstation # [id number]
== END ==
LOC: RAD FS 07:36
PROVIDERS: ATTEND Emergency Medicine
DX: I65.23 Occlusion and stenosis of bilateral carotid arteries (principal)
CPT/HCPCS: 93880

== ENCOUNTER → 2022-02-01 | Outpatient (CLI) | payer BC ==
--- NOTE | 2022-02-01 14:54 | Diagnostic Imaging Report ---
Indication: Mini stroke, carotid stenosis. TECHNIQUE: After intravenous administration of contrast, thin section axial CT angiography of the neck was performed. Source data was reformatted into 3D MIP reconstruction projections. Auto Exposure Controls were utilized during the CT exam to meet ALARA standards for radiation dose reduction. There is no prior CTA for comparison. The aortic arch and great vessel origins are patent, the combined trunk of the left common carotid and innominate artery, compatible with bovine arch. There is minor plaquing in the left subclavian artery. Both vertebral arteries are patent and appear without stenosis. There is minor plaquing in the distal left vertebral artery without stenosis. The right common carotid artery and internal carotid artery are occluded. There is some collateral filling of right external carotid branches. There appears to be collateral refilling of the right anterior middle cerebral arteries. The left common carotid artery is patent. There is patency of the left external carotid. The left internal carotid is occluded at its origin. There is collateral refilling of the left carotid terminus with patency of the left anterior and middle cerebral arteries. There is a well-developed posterior communicating artery on the left side. The dural venous sinuses are patent. IMPRESSION: On the right side, there is occlusion of the common carotid artery and internal carotid with some collateral refilling of the external carotid. On the left side, there is occlusion of the left internal carotid at its origin, the left common carotid artery and external carotid are patent. Collateral vessels refill the carotid terminus on both sides. Both vertebral arteries are patent and without significant stenosis. There is a well-developed posterior communicating artery on the left side. Dictated by: Dictated on workstation # [id number]
== END ==
LOC: RAD FS 09:40
DX: I63.233 Cerebral infarction due to unspecified occlusion or stenosis of bilateral carotid arteries (principal)
CPT/HCPCS: 70498; Q9967

== ENCOUNTER → 2022-12-14 | Outpatient (CLI) | payer BC ==
--- NOTE | 2022-12-14 16:51 | Diagnostic Imaging Report ---
EXAMINATION: Abdomen 1 view HISTORY: LOWER ABD PAIN, HX URINARY CALCULI COMPARISON: None available. FINDINGS: There is a moderate amount of gas and stool throughout the colon. Nonobstructive bowel gas pattern. There are few tiny calcifications within the pelvis which are nonspecific and could be seen with phleboliths or ureteral calculi. The lung bases are clear. The osseous structures are intact. IMPRESSION: 1. Moderate stool burden without other acute abnormality in the abdomen. 2. A few tiny calcifications within the right pelvis which could represent previously seen phleboliths or ureteral calculi. CT would be more sensitive for evaluation of ureteral calculus. Dictated by: Dictated on workstation # [id number]
== END ==
LOC: RAD FS 15:36
PROVIDERS: ATTEND Nurse Practitioner Family
DX: R93.89 Abnormal findings on diagnostic imaging of other specified body structures (principal); R10.30 Lower abdominal pain, unspecified; R33.9 Retention of urine, unspecified; R30.0 Dysuria; Z87.442 Personal history of urinary calculi
CPT/HCPCS: 74018

== ENCOUNTER → 2023-01-16 | Outpatient (CLI) | payer BC | LOC: CANPRECLI → RAD FS 16:01 | PROVIDERS: ATTEND Nurse Practitioner Family | DX: Z53.9 Procedure and treatment not carried out, unspecified reason (principal) ==

== ENCOUNTER → 2023-01-16 | Outpatient (CLI) | payer BC ==
--- NOTE | 2023-01-16 17:09 | Diagnostic Imaging Report ---
INDICATION: Abdominal pain. TECHNIQUE: Multiple contiguous axial images were obtained through the abdomen and pelvis without the use of intravenous contrast. Auto Exposure Controls were utilized during the CT exam to meet ALARA standards for radiation dose reduction. COMPARISON: Comparison made to prior CT of 11/09/2021. FINDINGS: The visualized portions of the lung bases show no acute finding. There is no pleural fluid or free intraperitoneal air. The liver and gallbladder appear unremarkable. The spleen and pancreas appear normal. The right adrenal appears normal. The left adrenal shows a small nodule measuring about 1.2 cm, this appears stable compared to the previous study. The kidneys bilaterally show multiple small intrarenal calculi but no hydronephrosis. The hydronephrotic change of the right kidney seen on the prior study has resolved. There is no retroperitoneal mass or adenopathy. Abdominal aorta is mildly ectatic measuring about 2.9 cm. The appendix appears normal. The visualized bowel loops show no sign of bowel obstruction or focal bowel wall thickening. There is no pelvic mass or lymphadenopathy. IMPRESSION: There are nonocclusive stones in both kidneys. The hydronephrotic changes of the right kidney seen on 11/09/2021 have resolved. There is no acute-appearing abnormality. There is a stable small left adrenal adenoma. There is mild ectasia of the abdominal aorta. Dictated by: Dictated on workstation # [id number]
== END ==
LOC: RAD FS 16:10
PROVIDERS: ATTEND Nurse Practitioner Family
DX: N20.0 Calculus of kidney (principal); D35.02 Benign neoplasm of left adrenal gland; I77.811 Abdominal aortic ectasia; R33.9 Retention of urine, unspecified
CPT/HCPCS: 74176